=== PATIENT | female | born 1990 | race Caucasian/White ===

== ENCOUNTER 2019-01-16 12:19 | Emergency (ER) | payer BC ==
[~2019-01-16] VITALS: Ht 152.4 cm; Wt 52.3 kg
[2019-01-16] MEDS ORDERED: CETI10TA59 PO (12:25)
[2019-01-16] MEDS ORDERED: BIRTH CONTROL PO (12:25)
[2019-01-16 13:30] VITALS: BP 138/89
== END 2019-01-16 13:40 | disposition home or self-care (01) ==
LOC: EMS 12:22
DX: L08.9 Local infection of the skin and subcutaneous tissue, unspecified (principal); F12.90 Cannabis use, unspecified, uncomplicated; Z88.1 Allergy status to other antibiotic agents; Z88.0 Allergy status to penicillin; Z91.018 Allergy to other foods